=== PATIENT | male | born 1975 | race Caucasian/White ===

== ENCOUNTER 2017-11-19 12:40 | Emergency (ER) | payer BC, OTHER ==
[2017-11-19 13:11] VITALS: BP 156/107
--- NOTE | 2017-11-19 13:33 | RAD ---
INDICATION: Right hand injury. TECHNIQUE: 4 views of the right hand were obtained. FINDINGS: There is an oblique fracture extending through the proximal metaphysis of the fifth proximal phalanx. The distal fragment is displaced slightly one cortical diameter medial relative to the proximal phalanx and demonstrates mild medial angulation. No other fractures are seen. Joint spaces appear maintained. IMPRESSION: OBLIQUE SLIGHTLY DISPLACED MILDLY ANGULATED FRACTURE OF THE FIFTH PROXIMAL PHALANX.
--- NOTE | 2017-11-19 13:56 | UC ---
Hand/Wrist HPI - HPI Summary HPI Summary: states [place] was [place] skate park on [place] bike and fell on his right hand, bending 4th and 5th fingers backward. Patient states he has some pain and took ibuprofen. Denies pain anywhere else in his arm - History Of Current Complaint Chief Complaint: UCUpperExtremity Stated Complaint: FINGER INJURY Time Seen by Provider: 11/19/17 13:26 Hx Obtained From: Patient ?: No Onset/Duration: Sudden Onset, Lasting Hours Severity Initially: Mild Severity Currently: Moderate Pain Intensity: 6 Character Of Pain: Dull Aggravating Factor(s): Movement Alleviating Factor(s): Ice, Elevation, OTC Meds Associated Signs And Symptoms: Positive: Negative - Allergies/Home Medications Allergies/Adverse Reactions: Allergies Allergy/AdvReac Type Severity Reaction Status Date / Time No Known Allergies Allergy Verified 11/19/17 13:11 Home Medications: Home Medications Ibuprofen 200 mg PO 11/19/17 [History] Lisinopril TAB* [Prinivil TAB*] 40 mg PO DAILY 11/19/17 [History Confirmed 11/19] PMH/Surg Hx/FS Hx/Imm Hx Previously Healthy: Yes Cardiovascular History: Hypertension - Surgical History Surgical History: Yes Surgery Procedure, Year, and Place: open fx repair - Family History Known Family History: Positive: Other - lung cancer in uncle - Social History Occupation: Employed Full-time Lives: With Family Alcohol Use: Weekly Substance Use Type: None Smoking Status (MU): Never Smoked Tobacco Review of Systems Constitutional: Negative Musculoskeletal: Arthralgia All Other Systems Reviewed And Are Negative: Yes Physical Exam Triage Information Reviewed: Yes Appearance: Well-Appearing, No Pain Distress, Well-Nourished Vital Signs: Initial Vital Signs Temp 98.6 F 11/19/17 13:08 Pulse 77 11/19/17 13:08 Resp 18 11/19/17 13:08 BP 156/107 11/19/17 13:08 Pulse Ox 100 11/19/17 13:08 Vital Signs Reviewed: Yes Eyes: Positive: Conjunctiva Inflamed ENT: Positive: Normal ENT inspection, Hearing grossly normal Neck exam: Normal Respiratory: Positive: Chest non-tender, Lungs clear, Normal breath sounds, No respiratory distress Cardiovascular: Positive: RRR, No Murmur, Pulses Normal, Brisk Capillary Refill Musculoskeletal: Positive: Edema @ - 5th finger, mild Neurological: Positive: Alert, Muscle Tone Normal Hand/Wrist Course/Dx - Course Course Of Treatment: Fifth proximal phalanx Fracture with slight angulation. Ulnar gutter splint placed, patient tolerated procedure well. Referral to orthopedics. Patient will take ibuprofen at home, maintain elevation of hand. f/ u PCP - Differential Dx/Diagnosis Provider Diagnoses: Fifth proximal phalanx fracture of right hand Discharge - Sign-Out/Discharge Documenting (check all that apply): Patient Departure - Discharge Plan Condition: Good Disposition: HOME Patient Education Materials: Ibuprofen (By mouth), Finger Fracture (ED) Referrals: David Calderón MD [Primary Care Provider] - Olamide Jeter MD [Medical Doctor] - - Billing Disposition and Condition Condition: GOOD Disposition: Home
== END 2017-11-19 14:29 | disposition home or self-care (01) ==
LOC: UCEAST 12:40
DX: S62.616A Displaced fracture of proximal phalanx of right little finger, initial encounter for closed fracture (principal); V18.0XXA Pedal cycle driver injured in noncollision transport accident in nontraffic accident, initial encounter; Y93.55 Activity, bike riding; Y92.830 Public park as the place of occurrence of the external cause; I10 Essential (primary) hypertension
CPT/HCPCS: 99211; G0463